=== PATIENT | female | born 1970 | race Asian ===

== ENCOUNTER 2018-07-08 07:11 | Day surgery (SDC) | payer BC ==
[~2018-07-08] VITALS: Ht 152.4 cm; Wt 54.9 kg
[~2018-07-08 07:11] MED LIST: CEFAZOLIN 1 GM IVPB PREMIX 50 ML IV ONE
[2018-07-08 07:33] LABS: HCG,QUAL RESULT NEGATIVE (NEGATIVE)
[2018-07-08] MEDS ORDERED: fentaNYL CITRATE/PF 100 MCG/2 ML AMP IVP ONE (10:10)
[2018-07-08] MEDS ORDERED: MIDAZOLAM HCL 5 MG/5 ML VIAL IVP ONE (10:10)
[2018-07-08] MEDS ORDERED: BUPIVACAINE /PF 0.25% 30 ML VIAL INJ ONE (10:10)
[2018-07-08] MEDS ORDERED: PROPOFOL 200MG/ 20ML VIAL (DIPRIVAN) IV ONE (10:10)
[2018-07-08] MEDS ORDERED: WATER FOR IRRIGATION,STERILE 1,000 ML IRRIG.SOLN IR ONE (10:10)
[2018-07-08] MEDS ORDERED: SEVOFLURANE 15 MIN GAS INH ONE (10:10)
[2018-07-08] MEDS ORDERED: KETOROLAC TROMETHAMINE 30 MG VIAL IVP PRN (10:45)
[2018-07-08] MEDS ORDERED: fentaNYL CITRATE/PF 100 MCG/2 ML AMP IVP PRN ×2 (10:45)
[2018-07-08] MEDS ORDERED: ONDANSETRON HCL 4 MG/2 ML VIAL IVP PRN (10:45)
[2018-07-08] MEDS ORDERED: D5/0.45 NS 1,000 ML IV SCH (10:57)
[2018-07-08] MEDS ORDERED: HYDROmorphone 1 MG INJ. 1 MG/ML AMPUL IVP PRN (11:00)
[2018-07-08] MEDS ORDERED: HYDROcodone/ACETAMIN 5-325 MG TAB (NORCO/ VICODIN) PO PRN ×2 (11:00)
[2018-07-08] MEDS ORDERED: fentaNYL CITRATE/PF 100 MCG/2 ML AMP ONE (11:43)
[2018-07-08 13:32] VITALS: BP_SYST 111
== END 2018-07-08 12:45 | disposition home or self-care (01) ==
LOC: SDS 07:11 → STU 07:33 → SDS 12:45
PROVIDERS: ATTEND Colon & Rectal Surgery
DX: D24.2 Benign neoplasm of left breast (principal)
CPT/HCPCS: 19301; 36415; 84703; 88305; J0690; J2250; J2704; J3010; J3490; J7120; 88307